=== PATIENT | female | born 1950 | race Two or more races ===

== ENCOUNTER 2020-01-08 12:10 | Inpatient (IN) | payer MEDICARE ==
[~2020-01-08] VITALS: Ht 165.1 cm; Wt 79.9 kg
[2020-01-08 13:34] LABS: BASOPHILS % 0.3 % (0.0-2.0); EOSINOPHILS % 0.1 % (0.0-5.0); HEMATOCRIT. 37.2 % (36.0-48.0); HEMOGLOBIN. 12.7 g/dL (12.0-16.0); LYMPHOCYTES % 22.3 % (20.0-50.0); MEAN CORPUSCULAR HEMOGLOBIN 31.2 pg (28.0-32.0); MEAN CORPUSCULAR VOLUME 91.3 fL (81.0-99.0); MEAN PLATELET VOLUME 9.2 fl (7.4-10.4); MONOCYTES % 11.3 % (2.0-8.0); PLATELET 161 x1000/uL (130-400); RED BLOOD CELL COUNT 4.07 mill/uL (4.2-5.4); RED CELL DISTRIBUTION WIDTH 14.2 % (11.6-14.6)
[2020-01-08 13:42] LABS: CHLORIDE 100 mEq/L (98-107)
[2020-01-08 13:51] LABS: CREATINE KINASE 101 IU/L (26-192)
[2020-01-08] MEDS ORDERED: LEVOFLOXACIN 500MG PREMIX 100 ML IV ONE (14:15)
[2020-01-08] MEDS ORDERED: SODIUM CHLORIDE 0.9% 500 ML IV ONE (14:53)
[2020-01-08] MEDS ORDERED: ACETAMINOPHEN 650MG SUPP PR PRN (15:45)
[2020-01-08] MEDS ORDERED: IPRATROPIUM/ALBUTEROL 0.5-3(2.5)MG/3ML NEB NEB PRN (15:45)
[2020-01-08] MEDS ORDERED: NA PHOS,M-B/NA PHOS,DI-BA ENEMA 118ML PR PRN (15:45)
[2020-01-08] MEDS ORDERED: CLONIDINE 0.1MG TABLET PO PRN (15:45)
[2020-01-08] MEDS ORDERED: ONDANSETRON HCL 4MG/2ML INJ IV PRN (15:45)
[2020-01-08] MEDS ORDERED: GUAIFENESIN 200MG/10ML SUGAR FREE UDC PO PRN (15:45)
[2020-01-08] MEDS ORDERED: DOCUSATE SODIUM 100MG CAPSULE PO PRN (15:45)
[2020-01-08] MEDS ORDERED: HYDROCODONE/ACETAMINOPHEN 5/325MG TABLET PO PRN (15:45)
[2020-01-08] MEDS ORDERED: MAGNESIUM/ALUMINUM HYDROXIDE/SIMETHICONE 30ML UDC PO PRN (15:45)
[2020-01-08] MEDS ORDERED: LORAZEPAM 0.5MG TABLET PO PRN (15:45)
[2020-01-08 15:47] LABS: CLARITY URINE TURBID (CLEAR); COLOR URINE DARK YELLOW (YELLOW); KETONES URINE TRACE (NEGATIVE); LEUKOCYTE ESTERASE URINE 3+ (NEGATIVE); NITRITE URINE NEGATIVE (NEGATIVE); OCCULT BLOOD URINE NEGATIVE (NEGATIVE); PH URINE 5.5 (4.5-8.0); PROTEIN URINE 3+ (NEGATIVE); SPECIFIC GRAVITY URINE 1.026 (1.005-1.030)
[2020-01-08 16:18] LABS: BG BASE EXCESS -3.9 mmol/L (-2.0-2.0); BG CARBOXYHEMOGLOBIN 0.2 % (0.5-1.5); BG DEOXYHEMOGLOBIN 3.4 % (0.0-5.0); BG HCO3 ACT 19.6 mmol/L (22.0-26.0); BG METHEMOGLOBIN 0.2 % (0.0-1.5); BG OXYGEN SATURATION 96.6 % (92.0-98.5); BG OXYHEMOGLOBIN 96.2 % (94.0-97.0); BG PCO2 31.4 mmHg (35.0-45.0); BG PH 7.414 (7.350-7.450); BG PO2 83.9 mmHg (75.0-100.0); BG SAMPLE SITE RIGHT BRACHIAL; BG VENT MODE ROOM AIR
[2020-01-08 16:30] LABS: D-DIMER 0.52 mg/L FEU (<0.50); PROTHROMBIN TIME 10.7 sec (9.6-11.0)
[2020-01-08] MEDS ORDERED: CEFTRIAXONE 1 G PREMIX 50 ML IV SCH (16:30)
[2020-01-08] MEDS: SODIUM CHLORIDE 0.9% 1,000 ML IV SCH (17:11)
[2020-01-08] MEDS ORDERED: AZITHROMYCIN 500 MG in DEXT 5% WATER 250 ML IV SCH (18:00)
[2020-01-08 20:36] LABS: *AMPHETAMINES SCREEN URINE NEGATIVE (NEGATIVE); *BARBITURATES SCREEN URINE NEGATIVE (NEGATIVE); *BENZODIAZEPINES SCREEN URINE NEGATIVE (NEGATIVE); *COCAINE SCREEN URINE NEGATIVE (NEGATIVE); CANNABINOID URINE SCREEN NEGATIVE (NEGATIVE); METHADONE URINE SCREEN NEGATIVE (NEGATIVE); OPIATES URINE SCREEN NEGATIVE (NEGATIVE); PHENCYCLIDINE URINE SCREEN NEGATIVE (NEGATIVE)
[2020-01-09] VITALS: BP 121/71
[2020-01-09 00:11] LABS: CREATINE KINASE 114 IU/L (26-192)
[2020-01-09 00:12] LABS: CREATINE KINASE MB FRACTION 1.1 ng/mL (0.5-3.6)
[2020-01-09 05:24] LABS: BASOPHILS % 0.2 % (0.0-2.0); EOSINOPHILS % 0.1 % (0.0-5.0); HEMATOCRIT. 36.1 % (36.0-48.0); HEMOGLOBIN. 12.2 g/dL (12.0-16.0); LYMPHOCYTES % 31.3 % (20.0-50.0); MEAN CORPUSCULAR VOLUME 91.6 fL (81.0-99.0); MEAN PLATELET VOLUME 8.9 fl (7.4-10.4); MONOCYTES % 7.6 % (2.0-8.0); NEUTROPHILS % 60.8 % (40.0-76.0); PLATELET 137 x1000/uL (130-400); RED BLOOD CELL COUNT 3.94 mill/uL (4.2-5.4)
[2020-01-09 05:39] LABS: CREATINE KINASE 114 IU/L (26-192)
[2020-01-09 05:40] LABS: CREATINE KINASE MB FRACTION < 1.0 ng/mL (0.5-3.6)
[2020-01-09 06:10] LABS: HEPATITIS B SURFACE ANTIGEN NEGATIVE
[2020-01-09 06:40] LABS: HEPATITIS A AB IGM NEGATIVE (NEGATIVE)
[2020-01-09 06:47] LABS: CHLORIDE 103 mEq/L (98-107)
[2020-01-09 06:53] LABS: LDL CHOLESTEROL 86 mg/dL (5-100)
[2020-01-09 06:56] LABS: HDL CHOLESTEROL 51 mg/dL (40-59); T4 FREE 1.01 ng/dL (0.76-1.46)
[2020-01-09] MEDS: SODIUM CHLORIDE 0.9% 1,000 ML IV SCH (08:02)
[2020-01-09] MEDS: ASPIRIN 81MG EC TABLET PO SCH (08:17)
[2020-01-09] MEDS ORDERED: DEXTROSE 50% WATER 50ML SYRINGE IV PRN (08:45)
[2020-01-09] MEDS: BLOOD SUGAR DIAGNOSTIC STRIP TEST SCH ×4 (08:55→20:45)
[2020-01-09] MEDS ORDERED: ENOXAPARIN 40MG/0.4ML SYR SUBCUT SCH (09:00)
[2020-01-09 10:18] VITALS: BP 106/55
[2020-01-09] MEDS: ACETAMINOPHEN 325MG TABLET PO PRN ×2 (10:44→21:11)
[2020-01-09 11:51] VITALS: BP 99/55
[2020-01-09] MEDS ORDERED: INSULIN LISPRO 100 UNITS/ML SUBCUT SCH (12:10)
[2020-01-09 12:15] VITALS: BP 135/50
[2020-01-09 17:25] LABS: BG BASE EXCESS -2.9 mmol/L (-2.0-2.0); BG CARBOXYHEMOGLOBIN 0.3 % (0.5-1.5); BG DEOXYHEMOGLOBIN 4.5 % (0.0-5.0); BG FRACTION INSPIRED OXYGEN 21; BG METHEMOGLOBIN 0.3 % (0.0-1.5); BG OXYGEN SATURATION 95.5 % (92.0-98.5); BG OXYHEMOGLOBIN 94.9 % (94.0-97.0); BG PCO2 33.4 mmHg (35.0-45.0); BG PH 7.416 (7.350-7.450); BG SAMPLE SITE RIGHT BRACHIAL; BG TOTAL HEMOGLOBIN 11.8 g/dL (12.0-18.0); BG VENT MODE ROOM AIR
[2020-01-09] MEDS ORDERED: INSULIN GLARGINE UD 100 UNITS/ML SYR SUBCUT NR (18:00)
[2020-01-09] MEDS: CEFTRIAXONE 1 G PREMIX 50 ML IV SCH (18:06)
[2020-01-09] MEDS: INSULIN LISPRO 100 UNITS/ML SUBCUT SCH ×2 (18:13→20:44)
[2020-01-09] MEDS: ENOXAPARIN 80MG/0.8ML SYR SUBCUT SCH (18:17)
[2020-01-09 20:00] VITALS: BP 137/60
[2020-01-09] MEDS: FAMOTIDINE 20MG TABLET PO SCH ×2 (20:44→21:12)
[2020-01-09] MEDS: AZITHROMYCIN 500 MG in DEXT 5% WATER 250 ML IV SCH (20:45)
[2020-01-10 04:00] VITALS: BP 121/62
[2020-01-10] MEDS: ENOXAPARIN 80MG/0.8ML SYR SUBCUT SCH ×3 (06:15→21:08)
[2020-01-10] MEDS: BLOOD SUGAR DIAGNOSTIC STRIP TEST SCH ×4 (06:45→21:09)
[2020-01-10 07:11] LABS: HEMATOCRIT 33.9 % (36.0-48.0); HEMOGLOBIN 11.7 g/dL (12.0-16.0); MEAN CORPUSCULAR HEMOGLOBIN 31.2 pg (28.0-32.0); MEAN CORPUSCULAR VOLUME 90.8 fL (81.0-99.0); PLATELET 160 x1000/uL (130-400); RED BLOOD CELL COUNT 3.74 mill/uL (4.2-5.4); RED CELL DISTRIBUTION WIDTH 13.9 % (11.6-14.6)
[2020-01-10 08:00] VITALS: BP 143/59
[2020-01-10] MEDS: ASPIRIN 81MG EC TABLET PO SCH (08:56)
[2020-01-10] MEDS: INSULIN LISPRO 100 UNITS/ML SUBCUT SCH ×4 (10:02→21:09)
[2020-01-10] MEDS: INSULIN GLARGINE UD 100 UNITS/ML SYR SUBCUT SCH (11:49)
[2020-01-10 12:00] VITALS: BP 152/66
[2020-01-10] MEDS ORDERED: INSU100V3 SUBCUT (14:19)
[2020-01-10] MEDS ORDERED: METF-416 PO (14:19)
[2020-01-10 16:00] VITALS: BP 140/61
[2020-01-10] MEDS: CEFTRIAXONE 1 G PREMIX 50 ML IV SCH (17:41)
[2020-01-10] MEDS: AZITHROMYCIN 500 MG in DEXT 5% WATER 250 ML IV SCH (18:26)
[2020-01-10 20:07] VITALS: BP 124/58
[2020-01-10] MEDS: ACETAMINOPHEN 325MG TABLET PO PRN (21:07)
[2020-01-10] MEDS: FAMOTIDINE 20MG TABLET PO SCH (21:07)
[2020-01-11] VITALS: BP 117/53
[2020-01-11 04:00] VITALS: BP 148/68
[2020-01-11] MEDS: BLOOD SUGAR DIAGNOSTIC STRIP TEST SCH ×4 (06:23→20:58)
[2020-01-11] MEDS: ENOXAPARIN 80MG/0.8ML SYR SUBCUT SCH ×2 (06:32→17:22)
[2020-01-11] MEDS: INSULIN LISPRO 100 UNITS/ML SUBCUT SCH ×4 (06:44→20:58)
[2020-01-11] MEDS: ASPIRIN 81MG EC TABLET PO SCH (08:36)
[2020-01-11 12:00] VITALS: BP 139/57
[2020-01-11] MEDS: INSULIN GLARGINE UD 100 UNITS/ML SYR SUBCUT SCH (12:09)
[2020-01-11 16:00] VITALS: BP 146/60
[2020-01-11] MEDS: CEFTRIAXONE 1 G PREMIX 50 ML IV SCH (16:11)
[2020-01-11] MEDS: METHYLPREDNISOLONE SOD SUCC 40 MG/ML VIAL IV SCH (16:11)
[2020-01-11] MEDS: AZITHROMYCIN 500 MG in DEXT 5% WATER 250 ML IV SCH (18:02)
[2020-01-11 20:00] VITALS: BP 144/61
[2020-01-11] MEDS: FAMOTIDINE 20MG TABLET PO SCH (20:53)
[2020-01-12] VITALS: BP 117/56
[2020-01-12] MEDS: METHYLPREDNISOLONE SOD SUCC 40 MG/ML VIAL IV SCH ×3 (00:16→22:44)
[2020-01-12 04:00] VITALS: BP 140/59
[2020-01-12] MEDS: BLOOD SUGAR DIAGNOSTIC STRIP TEST SCH ×4 (06:25→21:05)
[2020-01-12] MEDS: ENOXAPARIN 80MG/0.8ML SYR SUBCUT SCH ×2 (06:49→17:08)
[2020-01-12] MEDS: INSULIN LISPRO 100 UNITS/ML SUBCUT SCH ×4 (06:50→21:07)
[2020-01-12 07:01] LABS: BASOPHILS % 0.1 % (0.0-2.0); HEMATOCRIT. 35.6 % (36.0-48.0); HEMOGLOBIN. 11.9 g/dL (12.0-16.0); LYMPHOCYTES % 16.2 % (20.0-50.0); MEAN CORPUSCULAR HEMOGLOBIN 30.2 pg (28.0-32.0); MEAN CORPUSCULAR VOLUME 90.4 fL (81.0-99.0); MEAN PLATELET VOLUME 8.2 fl (7.4-10.4); MONOCYTES % 3.5 % (2.0-8.0); NEUTROPHILS % 80.2 % (40.0-76.0); PLATELET 182 x1000/uL (130-400); RED BLOOD CELL COUNT 3.93 mill/uL (4.2-5.4); RED CELL DISTRIBUTION WIDTH 13.9 % (11.6-14.6)
[2020-01-12 08:24] LABS: CHLORIDE 101 mEq/L (98-107)
[2020-01-12] MEDS: ASPIRIN 81MG EC TABLET PO SCH (08:52)
[2020-01-12] MEDS: INSULIN GLARGINE UD 100 UNITS/ML SYR SUBCUT SCH ×2 (11:17→22:12)
[2020-01-12 12:00] VITALS: BP 144/56
[2020-01-12 12:57] LABS: BG BASE EXCESS -1.9 mmol/L (-2.0-2.0); BG CARBOXYHEMOGLOBIN 0.3 % (0.5-1.5); BG DEOXYHEMOGLOBIN 7.7 % (0.0-5.0); BG FRACTION INSPIRED OXYGEN 28; BG HCO3 ACT 22.4 mmol/L (22.0-26.0); BG OXYGEN SATURATION 92.3 % (92.0-98.5); BG PCO2 36.8 mmHg (35.0-45.0); BG PH 7.403 (7.350-7.450); BG PO2 63.5 mmHg (75.0-100.0); BG SAMPLE SITE RIGHT BRACHIAL; BG TOTAL HEMOGLOBIN 12.3 g/dL (12.0-18.0); BG VENT MODE NASAL CANNULA
[2020-01-12 16:00] VITALS: BP 140/65
[2020-01-12] MEDS: CEFTRIAXONE 1 G PREMIX 50 ML IV SCH (16:11)
[2020-01-12] MEDS ORDERED: ENOXAPARIN 80MG/0.8ML SYR SUBCUT SCH (16:30)
[2020-01-12] MEDS: AZITHROMYCIN 500 MG in DEXT 5% WATER 250 ML IV SCH (17:07)
[2020-01-12 20:00] VITALS: BP 122/63
[2020-01-12] MEDS: ACETAMINOPHEN 325MG TABLET PO PRN (21:04)
[2020-01-12] MEDS: FAMOTIDINE 20MG TABLET PO SCH (21:05)
[2020-01-13] VITALS: BP 123/56
[2020-01-13 04:00] VITALS: BP 117/62
[2020-01-13] MEDS: BLOOD SUGAR DIAGNOSTIC STRIP TEST SCH ×4 (06:21→21:00)
[2020-01-13 06:27] LABS: HEMATOCRIT. 32.6 % (36.0-48.0); HEMOGLOBIN. 11.4 g/dL (12.0-16.0); MEAN CORPUSCULAR HEMOGLOBIN 31.2 pg (28.0-32.0); MEAN CORPUSCULAR VOLUME 89.5 fL (81.0-99.0); MEAN PLATELET VOLUME 8.8 fl (7.4-10.4); PLATELET 221 x1000/uL (130-400); RED BLOOD CELL COUNT 3.64 mill/uL (4.2-5.4); RED CELL DISTRIBUTION WIDTH 13.8 % (11.6-14.6)
[2020-01-13 06:37] LABS: CHLORIDE 101 mEq/L (98-107)
[2020-01-13] MEDS: ENOXAPARIN 80MG/0.8ML SYR SUBCUT SCH ×2 (06:41→17:44)
[2020-01-13] MEDS: INSULIN LISPRO 100 UNITS/ML SUBCUT SCH ×4 (06:42→22:26)
[2020-01-13 08:00] VITALS: BP 127/60
[2020-01-13] MEDS: ASPIRIN 81MG EC TABLET PO SCH (09:07)
[2020-01-13] MEDS: METHYLPREDNISOLONE SOD SUCC 40 MG/ML VIAL IV SCH ×2 (09:07→22:24)
[2020-01-13] MEDS ORDERED: INSULIN GLARGINE UD 100 UNITS/ML SYR SUBCUT SCH (10:00)
[2020-01-13] MEDS: INSULIN GLARGINE UD 100 UNITS/ML SYR SUBCUT SCH ×2 (11:56→22:27)
[2020-01-13 12:00] VITALS: BP 133/63
[2020-01-13] MEDS ORDERED: INSULIN GLARGINE UD 100 UNITS/ML SYR SUBCUT NR (14:00)
[2020-01-13 14:50] LABS: PLATELET ESTIMATE NORMAL
[2020-01-13 16:00] VITALS: BP 131/70
[2020-01-13] MEDS ORDERED: INSULIN LISPRO 100 UNITS/ML SUBCUT NR (17:00)
[2020-01-13] MEDS: AZITHROMYCIN 500 MG TABLET PO SCH (17:02)
[2020-01-13] MEDS: METFORMIN HCL 500MG TABLET PO SCH (17:03)
[2020-01-13] MEDS: CEFTRIAXONE 1 G PREMIX 50 ML IV SCH (17:31)
[2020-01-13 20:00] VITALS: BP 139/57
[2020-01-13] MEDS: FAMOTIDINE 20MG TABLET PO SCH (22:24)
[2020-01-13] MEDS: DIPHENHYDRAMINE 50MG/ML VIAL IV PRN (22:43)
[2020-01-14] VITALS (7 sets, daily range): BP systolic 113–177; BP diastolic 53–83
[2020-01-14] MEDS: ENOXAPARIN 80MG/0.8ML SYR SUBCUT SCH ×2 (06:14→17:14)
[2020-01-14] MEDS: BLOOD SUGAR DIAGNOSTIC STRIP TEST SCH ×4 (06:14→21:37)
[2020-01-14] MEDS: INSULIN LISPRO 100 UNITS/ML SUBCUT SCH ×4 (07:10→21:42)
[2020-01-14] MEDS: AZITHROMYCIN 500 MG TABLET PO SCH (09:25)
[2020-01-14] MEDS: ASPIRIN 81MG EC TABLET PO SCH (09:25)
[2020-01-14] MEDS: METHYLPREDNISOLONE SOD SUCC 40 MG/ML VIAL IV SCH ×2 (09:25→21:20)
[2020-01-14] MEDS: METFORMIN HCL 500MG TABLET PO SCH ×2 (09:25→17:14)
[2020-01-14] MEDS: INSULIN GLARGINE UD 100 UNITS/ML SYR SUBCUT SCH ×2 (09:57→21:42)
[2020-01-14] MEDS: CEFTRIAXONE 1 G PREMIX 50 ML IV SCH (17:15)
[2020-01-14] MEDS: FAMOTIDINE 20MG TABLET PO SCH (21:20)
[2020-01-14] MEDS ORDERED: BENZONATATE 100MG CAPSULE PO PRN (23:00)
[2020-01-14] MEDS: DIPHENHYDRAMINE 50MG/ML VIAL IV PRN (23:33)
[2020-01-15 04:00] VITALS: BP 151/70
[2020-01-15 06:33] LABS: CHLORIDE 104 mEq/L (98-107)
[2020-01-15] MEDS: BLOOD SUGAR DIAGNOSTIC STRIP TEST SCH ×3 (06:40→16:40)
[2020-01-15] MEDS: ENOXAPARIN 80MG/0.8ML SYR SUBCUT SCH ×2 (06:43→18:18)
[2020-01-15] MEDS: INSULIN LISPRO 100 UNITS/ML SUBCUT SCH ×3 (06:45→18:20)
[2020-01-15 06:49] LABS: BASOPHILS % 0.2 % (0.0-2.0); HEMATOCRIT. 33.4 % (36.0-48.0); HEMOGLOBIN. 11.4 g/dL (12.0-16.0); LYMPHOCYTES % 8.5 % (20.0-50.0); MEAN CORPUSCULAR HEMOGLOBIN 30.7 pg (28.0-32.0); MEAN CORPUSCULAR VOLUME 90.2 fL (81.0-99.0); MEAN PLATELET VOLUME 8.6 fl (7.4-10.4); NEUTROPHILS % 86.3 % (40.0-76.0); PLATELET 246 x1000/uL (130-400); RED BLOOD CELL COUNT 3.71 mill/uL (4.2-5.4); RED CELL DISTRIBUTION WIDTH 13.9 % (11.6-14.6)
[2020-01-15 08:00] VITALS: BP 114/49
[2020-01-15] MEDS: METHYLPREDNISOLONE SOD SUCC 40 MG/ML VIAL IV SCH (09:48)
[2020-01-15] MEDS: METFORMIN HCL 500MG TABLET PO SCH ×2 (09:48→16:37)
[2020-01-15] MEDS: AZITHROMYCIN 500 MG TABLET PO SCH (09:48)
[2020-01-15] MEDS: ASPIRIN 81MG EC TABLET PO SCH (09:51)
[2020-01-15] MEDS: INSULIN GLARGINE UD 100 UNITS/ML SYR SUBCUT SCH (09:57)
[2020-01-15 12:30] VITALS: BP 181/74
[2020-01-15 15:09] VITALS: BP 151/56
[2020-01-15] MEDS ORDERED: SODIUM POLYSTYRENE SULFONATE 15 G/60 ML BOT PO ONE (16:00)
[2020-01-15] MEDS ORDERED: SODIUM POLYSTYRENE SULFONATE 15 G/60 ML BOT PO NR (16:00)
[2020-01-15] MEDS: CEFTRIAXONE 1 G PREMIX 50 ML IV SCH (16:38)
[2020-01-16] MEDS ORDERED: METHYLPREDNISOLONE SOD SUCC 40 MG/ML VIAL IV SCH (09:00)
== END 2020-01-15 18:56 | DRG 177 ==
LOC: ER 12:10 → 7EST 14:15 → EDBEDREQ 14:18 → SUPCPDRO 15:37 → EDBEDREQ 22:01 → ENRESERV 01-09 07:45 → 7EST 01-09 10:15
PROVIDERS: ADMIT Internal Medicine; ATTEND Internal Medicine
DX: U07.1 COVID-19 (principal); J12.89 Other viral pneumonia; J96.01 Acute respiratory failure with hypoxia; E87.2 Acidosis; E87.1 Hypo-osmolality and hyponatremia; D68.59 Other primary thrombophilia; N17.9 Acute kidney failure, unspecified; G90.8 Other disorders of autonomic nervous system; I10 Essential (primary) hypertension; E66.9 Obesity, unspecified; E11.65 Type 2 diabetes mellitus with hyperglycemia; E87.5 Hyperkalemia; Z79.899 Other long term (current) drug therapy; Z68.29 Body mass index [BMI] 29.0-29.9, adult
CPT/HCPCS: 36415; 36600; 71045; 80048; 80053; 80061; 80076; 80305; 81003; 82375; 82550; 82553; 82728; 82805; 82962; 83036; 83605; 83615; 83880; 84145; 84439; 84443; 84484; 85025; 85027; 85379; 85384; 86140; 86705; 86709; 86803; 87340; 87804; 93005; 99291; J0456; J0696; J1200; J1650; J1815; J1956; J2920; J7040; J7060; U0003